=== PATIENT | male | born 1970 | race Caucasian/White ===

== ENCOUNTER 2019-05-30 07:18 | Emergency (ER) | payer BC ==
[2019-05-30 07:35] VITALS: BP 152/110
--- NOTE | 2019-05-30 07:56 | EDM.PDOC ---
ED HPI GENERAL MEDICAL PROBLEM - General Chief Complaint: Bite:Animal, Insect Stated Complaint: WOOD TICK BITE Time Seen by Provider: 05/30/19 07:40 Source of Information: Reports: Patient History Limitations: Reports: No Limitations - History of Present Illness INITIAL COMMENTS - FREE TEXT/NARRATIVE: 48-year-old male that had a tick bite on his left upper lateral thigh yesterday , he thought it was a deer fly but this morning had a tick embedded into his skin. His removed the tick but there is a red raised area with a central ecchymotic area. The total size is 2.5 cm wide. He has no other symptoms. He just finished a course of doxycycline 2 weeks ago for rosacea, and is developing another flareup on his forehead. Associated Symptoms: Reports: No Other Symptoms - Related Data Allergies Allergy/AdvReac Type Severity Reaction Status Date / Time No Known Allergies Allergy Verified 05/30/19 07:34 Home Meds: Home Meds NK [No Known Home Meds] 05/30/19 [History] Past Medical History - Past Health History Medical/Surgical History: Denies Medical/Surgical History Neurological History: Reports: None Dermatologic History: Reports: Other (See Below) - Past Surgical History Head Surgeries/Procedures: Reports: None Neurological Surgical History: Reports: Lumbar Spine Musculoskeletal Surgical History: Reports: Shoulder Replacement, Other (See Below) Dermatological Surgical History: Reports: None Social & Family History - Tobacco Use Smoking Status *Q: Never Smoker - Caffeine Use Caffeine Use: Reports: Coffee - Alcohol Use Days Per Week of Alcohol Use: 3 Number of Drinks Per Day: 4 Total Drinks Per Week: 12 - Recreational Drug Use Recreational Drug Use: No ED ROS GENERAL - Review of Systems Review Of Systems: See Below Constitutional: Denies: Fever, Chills Respiratory: Reports: No Symptoms Cardiovascular: Reports: No Symptoms GI/Abdominal: Reports: No Symptoms Skin: Reports: Other (Red area on the left thigh as mentioned and the tick bite , early erythema on the forehead and right cheek that the patient thinks is another rosacea flare) Neurological: Reports: No Symptoms Psychiatric: Reports: No Symptoms ED EXAM, ANIMAL BITE - Physical Exam Exam: See Below Exam Limited By: No Limitations General Appearance: Alert, No Apparent Distress Head: Atraumatic Respiratory/Chest: No Respiratory Distress Neurological: Alert, Oriented Psychiatric: Normal Affect, Normal Mood Skin Exam: Other (Patient has a 2.5 cm oval slightly raised reddened area of inflammation on the lateral left thigh with a small central necrotic area, no significant foreign body present. He also has some scattered slightly raised erythematous maculopapular areas on the forehead and right cheek) Course - Vital Signs Last Recorded V/S: Last Vital Signs Temp 95.4 F 05/30/19 07:40 Pulse 60 05/30/19 07:40 Resp 21 H 05/30/19 07:40 BP 152/110 H 05/30/19 07:40 Pulse Ox 96 05/30/19 07:40 - Re-Assessments/Exams Free Text/Narrative Re-Assessment/Exam: 05/30/19 07:55 Patient would like to restart doxycycline for his rosacea which will protect him against Lyme's. He was given a full course of 10 days of doxycycline, 100 mg twice a day with the first 2 doses recommended for the tick bite regardless. He will return if worsening despite treatment. Departure - Departure Time of Disposition: 08:03 Disposition: Home, Self-Care 01 Clinical Impression: Tick bite - Discharge Information Instructions: Tick Bite Information, Adult, [id number] Referrals: PCP,None [Primary Care Provider] - Forms: ED Department Discharge Care Plan Goals: Take at least 2 doses of doxycycline, and continue medication if you desire for treatment of other issues as discussed. Recheck if you feel you are becoming ill such as fever or joint pains.
== END 2019-05-30 08:03 | disposition home or self-care (01) ==
LOC: JP.ED 07:18
DX: S70.362A Insect bite (nonvenomous), left thigh, initial encounter (principal); W57.XXXA Bitten or stung by nonvenomous insect and other nonvenomous arthropods, initial encounter
CPT/HCPCS: 99281

== ENCOUNTER 2021-10-10 07:55 | Emergency (ER) | payer BC ==
[2021-10-10] MEDS ORDERED: Aspirin 81 MG Tab.Chew PO ONE (08:06)
[2021-10-10] MEDS ORDERED: Ketorolac 30 MG/ML SDV IM ONE (08:09)
--- NOTE | 2021-10-10 08:12 | EDM.PDOC ---
ED HPI GENERAL MEDICAL PROBLEM - General Stated Complaint: CHEST PAINS Time Seen by Provider: 10/10/21 08:06 Source of Information: Reports: Patient, RN Notes Reviewed History Limitations: Reports: No Limitations - History of Present Illness INITIAL COMMENTS - FREE TEXT/NARRATIVE: 51-year-old gentleman presents to the emergency department day complaint of chest pain, he has had chest pain for 6 days, he does admit to doing a lot of twisting and bending has sought health care law specialist without any relief the chest pain will come and go but it is not getting any better it is located in the center of his chest he has no nausea no vomiting no diaphoresis no dyspnea. He does have a family history mother and father both myocardial infarction however they were in their 80s, rates his pain 3 out of 10 Chest Pain Score (Numeric/FACES): 4 - Related Data Allergies Allergy/AdvReac Type Severity Reaction Status Date / Time No Known Allergies Allergy Verified 05/30/19 07:34 Home Meds: Home Meds NK [No Known Home Meds] 05/30/19 [History] Past Medical History - Past Surgical History Head Surgeries/Procedures: Reports: None Neurological Surgical History: Reports: Lumbar Spine Musculoskeletal Surgical History: Reports: Shoulder Replacement, Other (See Below) Dermatological Surgical History: Reports: None Social & Family History - Tobacco Use Tobacco Use Status *Q: Never Tobacco User - Caffeine Use Caffeine Use: Reports: Coffee ED ROS GENERAL - Review of Systems Review Of Systems: See Below Constitutional: Reports: No Symptoms HEENT: Reports: No Symptoms Respiratory: Reports: No Symptoms Cardiovascular: Reports: Chest Pain GI/Abdominal: Reports: No Symptoms : Reports: No Symptoms ED EXAM, GENERAL - Physical Exam Exam: See Below Exam Limited By: No Limitations General Appearance: Alert, WD/WN, No Apparent Distress Respiratory/Chest: No Respiratory Distress, Lungs Clear, Normal Breath Sounds, No Accessory Muscle Use, Chest Non-Tender Cardiovascular: Regular Rate, Rhythm, No Murmur GI/Abdominal: Soft, Non-Tender Extremities: No Pedal Edema #1 Interpretation EKG Date: 10/10/21 (n) Time: 08:19 Rhythm: NSR [place]: Normal P-Wave: Present QRS: Normal ST-T: Normal QT: Normal Course - Vital Signs Last Recorded V/S: Last Vital Signs Temp 97.6 F 10/10/21 08:00 Pulse 56 L 10/10/21 09:25 Resp 16 10/10/21 09:25 BP 131/86 10/10/21 09:25 Pulse Ox 97 10/10/21 09:25 - Orders/Labs/Meds Orders: Active Orders 24 hr Category Date Time Status Cardiac Monitoring [RC] .As Directed Care 10/10/21 08:06 Active EKG 12 Lead [EK] Stat Ther 10/10/21 08:09 Ordered Labs: Laboratory Tests 10/10/21 10/10/21 Range/Units 08:20 08:20 WBC 4.4 L (4.5-11.0) K/uL RBC 4.83 (4.30-5.90) M/uL Hgb 15.7 H (12.0-15.0) g/dL Hct 45.0 (40.0-54.0) % MCV 93 (80-98) fL MCH 33 H (27-31) pg MCHC 35 (32-36) % Plt Count 202 (150-400) K/uL Neut % (Auto) 53.3 (36-66) % Lymph % (Auto) 27.4 (24-44) % [place] % (Auto) 15.2 H (2-6) % Eos % (Auto) 2.5 (2-4) % Baso % (Auto) 1.6 H (0-1) % Sodium 141 (140-148) mmol/L Potassium 4.1 (3.6-5.2) mmol/L Chloride 104 (100-108) mmol/L Carbon Dioxide 27 (21-32) mmol/L Anion Gap 9.8 (5.0-14.0) mmol/L BUN 12 (7-18) mg/dL Creatinine 0.8 (0.8-1.3) mg/dL Est Cr Clr Drug Dosing 116.35 mL/min Estimated GFR (MDRD) > 60 (>60) Glucose 102 (74-106) mg/dL Calcium 8.5 (8.5-10.1) mg/dL Total Bilirubin 0.6 (0.2-1.0) mg/dL AST 38 H (15-37) U/L ALT 92 H (12-78) U/L Alkaline Phosphatase 61 (46-116) U/L Troponin I < 0.017 (0.000-0.056) ng/mL Total Protein 7.0 (6.4-8.2) g/dL Albumin 4.0 (3.4-5.0) g/dL Globulin 3.0 (2.3-3.5) g/dL Albumin/Globulin Ratio 1.3 (1.2-2.2) Meds: Medications Discontinued Medications Generic Name Dose Route Start Last Admin Trade Name Mary PRN Reason Stop Dose Admin Aspirin 324 mg 10/10/21 08:06 10/10/21 08:36 Aspirin 81 Mg Tab.Chew PO 10/10/21 08:07 324 mg ONETIME ONE Administration Ketorolac Tromethamine 30 mg 10/10/21 08:09 10/10/21 08:37 Ketorolac 30 Mg/Ml Sdv IM 10/10/21 08:10 30 mg ONETIME ONE Administration Departure - Departure Time of Disposition: 09:35 Disposition: Home, Self-Care 01 Condition: Fair Clinical Impression: Atypical chest pain Instructions: Nonspecific Chest Pain, Adult Referrals: PCP,None [Primary Care Provider] - Additional Instructions: Try the nonsteroidal anti-inflammatories at home ibuprofen could be used at 800 mg 3 times a day or 600 mg 4 times a day try to reduce the frequency and dosage of the ibuprofen as this condition improves. Please follow-up with your primary care upon return home call or return to the emergency department worsening of symptoms Sepsis Event Note (ED) - Focused Exam Vital Signs: Vital Signs Temp Pulse Resp BP Pulse Ox 10/10/21 09:25 56 L 16 131/86 97 10/10/21 08:00 97.6 F 51 L 18 124/82 97 - My Orders Last 24 Hours: My Active Orders 10/10/21 08:06 Cardiac Monitoring [RC] .As Directed 10/10/21 08:09 EKG 12 Lead [EK] Stat - Assessment/Plan Last 24 Hours: My Active Orders 10/10/21 08:06 Cardiac Monitoring [RC] .As Directed 10/10/21 08:09 EKG 12 Lead [EK] Stat Plan: Assessment Acuity = acute Site and laterality = atypical chest pain Etiology = suspicious for muscle skeletal Manifestations = none Location of injury = Home Lab values = CBC, CMP unremarkable except for AST slightly elevated 38 ALT elevated 92 consistent with elevated liver enzymes, troponin was unmeasurable. Plan He received good relief with the Toradol provided he is pain-free at this time he is going to try anti-inflammatories at home and then follow-up with his primary care upon return home This note was dictated using [employer] voice recognition software please call with any questions on syntax or grammar.
--- NOTE | 2021-10-10 08:49 | CR ---
CHEST: Portable 10/10/2021 at 8:24 AM CLINICAL HISTORY:Chest pain COMPARISON:None FINDINGS: The heart size, pulmonary vascularity and hilar structures are normal. No infiltrate effusion or pneumothorax is seen. IMPRESSION: No acute cardiopulmonary process.
[2021-10-10 09:26] VITALS: BP 131/86; PULSE 56
== END 2021-10-10 09:51 | disposition home or self-care (01) ==
LOC: JP.ED 07:55
DX: R07.89 Other chest pain (principal)
CPT/HCPCS: 36415; 71045; 80053; 84484; 85025; 93005; 96372; 99285; A9270; J1885